=== PATIENT | male | born 1985 | race American Indian/Alaskan Native ===

== ENCOUNTER 2017-11-14 22:08 | Emergency (ER) | payer SELFPAY ==
[2017-11-14 23:27] VITALS: BP 131/101
== END 2017-11-15 03:30 | disposition left against medical advice (07) ==
LOC: ED 22:08
DX: J02.9 Acute pharyngitis, unspecified (principal); Z53.21 Procedure and treatment not carried out due to patient leaving prior to being seen by health care provider
CPT/HCPCS: 87116; 87430